=== PATIENT | female | born 1990 | race Caucasian/White ===

== ENCOUNTER 2018-05-09 06:17 | Emergency (ER) | payer MEDICAID ==
[~2018-05-09] VITALS: Ht 154.9 cm; Wt 57.0 kg
[2018-05-09 09:43] VITALS: BP 130/67
== END 2018-05-09 09:58 | disposition home or self-care (01) ==
LOC: ER 06:17
DX: J06.9 Acute upper respiratory infection, unspecified (principal)
CPT/HCPCS: 81025; 87070; 87430; 99283

== ENCOUNTER 2022-08-12 08:38 | Emergency (ER) | payer MEDICAID ==
[~2022-08-12] VITALS: Ht 165.1 cm; Wt 78.0 kg
[2022-08-12] MEDS ORDERED: IBUPROFEN 800MG TABLET PO ONE (10:30)
[2022-08-12] MEDS ORDERED: T3 PO (10:32)
[2022-08-12] MEDS ORDERED: IBUP-2030 PO (10:32)
[2022-08-12 10:48] VITALS: BP 118/76
== END 2022-08-12 11:08 | disposition home or self-care (01) ==
LOC: ER 08:38
DX: S93.491A Sprain of other ligament of right ankle, initial encounter (principal); W10.8XXA Fall (on) (from) other stairs and steps, initial encounter; Y93.01 Activity, walking, marching and hiking; Y92.89 Other specified places as the place of occurrence of the external cause
CPT/HCPCS: 73600; 81025; 99283

== ENCOUNTER 2023-11-03 23:15 | Emergency (ER) | payer MEDICAID ==
[~2023-11-03 23:15] MED LIST: IBUP-2030 PO; T3 PO
[2023-11-03 23:21] VITALS: PULSE 107
== END 2023-11-04 01:40 | disposition left against medical advice (07) ==
LOC: ER 23:15
DX: R06.02 Shortness of breath (principal); Z53.21 Procedure and treatment not carried out due to patient leaving prior to being seen by health care provider